=== PATIENT | male | born 1995 | race African-American/Black ===

== ENCOUNTER 2018-01-14 11:55 | Emergency (ER) | payer OTHER ==
[2018-01-14 12:36] LABS: BASOPHILS % (AUTO) 1.1 %; EOSINOPHILS # (AUTO) 0.2 10^3/uL (0.0-0.7); EOSINOPHILS % (AUTO) 5.2 %; LYMPHOCYTES # (AUTO) 1.9 10^3/uL (1.5-3.5); LYMPHOCYTES % (AUTO) 50.5 %; MEAN CORPUSCULAR HGB CONC 32.2 g/dL (32.0-36.0); MEAN CORPUSCULAR VOLUME 83.7 fL (80.0-94.0); MEAN PLATELET VOLUME 7.2 fL (7.4-11.4); MONOCYTES # (AUTO) 0.2 10^3/uL (0.0-1.0); MONOCYTES % (AUTO) 4.5 %; NEUTROPHILS # (AUTO) 1.5 10^3/uL (1.5-6.6); NEUTROPHILS % (AUTO) 38.7 %; PLT - PLATELET COUNT 240 10^3/uL (130-450); RED CELL DISTRIBUTION WIDTH 13.5 % (12.0-15.0); WHITE BLOOD COUNT 3.8 x10^3/uL (4.8-10.8)
[2018-01-14 12:50] LABS: ALBUMIN 4.2 g/dL (3.2-5.5); ALBUMIN/GLOBULIN RATIO 1.3 (1.0-2.2); BILIRUBIN,TOTAL 0.6 mg/dL (0.2-1.0); CALCIUM 9.3 mg/dL (8.5-10.3); CREATININE 1.3 mg/dL (0.6-1.2); TOTAL PROTEIN 7.4 g/dL (6.7-8.2)
[2018-01-14 12:58] LABS: BILIRUBIN,URINE NEGATIVE (NEGATIVE); GLUCOSE, URINE (UA) NEGATIVE (NEGATIVE); KETONES,URINE (UA) NEGATIVE (NEGATIVE); LEUKOCYTE ESTERASE, URINE NEGATIVE (NEGATIVE); NITRITE,URINE NEGATIVE (NEGATIVE); OCCULT BLOOD,URINE NEGATIVE (NEGATIVE); PROTEIN,URINE NEGATIVE (NEGATIVE); UROBILINOGEN,URINE 0.2 (NORMAL) E.U./dL (NORMAL)
[2018-01-14 13:02] LABS: CLARITY,URINE CLEAR (CLEAR)
--- NOTE | 2018-01-14 13:13 | ED Physician Documentation ---
PD HPI ABD PAIN - Stated complaint Stated Complaint: ABDOMINAL PAIN - Chief complaint Chief Complaint: Abd Pain - History obtained from History obtained from: Patient - History of Present Illness Timing - onset: How many hours ago (few), Today Timing - duration: Hours Timing - details: Abrupt onset, Still present Quality: Cramping, Aching, Pain Location: RUQ, RLQ Radiation: . No: Right flank Worsened by: Eating Associated symptoms: Nausea, Vomiting, Diarrhea. No: Fever, Hematochezia, Dysuria Recently seen: Clinic (today seen and referred to ER due to concern for appy.) Review of Systems Constitutional: reports: Myalgias. denies: Fever, Chills Nose: denies: Rhinorrhea / runny nose, Congestion Throat: denies: Sore throat Respiratory: denies: Cough GI: denies: Vomiting, Diarrhea PD PAST MEDICAL HISTORY - Past Medical History Past Medical History: No GI: None : None - Present Medications Home Medications: Ambulatory Orders Medication Instructions Recorded Confirmed Ibuprofen [Motrin] 600 mg PO TID #20 tab 01/14/18 Ondansetron Odt [Zofran] 4 mg TL Q6H PRN #15 tablet 01/14/18 - Allergies Allergies/Adverse Reactions: Allergies Allergy/AdvReac Type Severity Reaction Status Date / Time No Known Drug Allergies Allergy Verified 01/14/18 12:08 - Social History Does the pt smoke?: No Smoking Status: Never smoker - Family History Family history: reports: Non contributory PD ED PE NORMAL - Vitals Vital signs reviewed: Yes - General General: Alert and oriented X 3, No acute distress, Well developed/nourished - HEENT HEENT: PERRL, Pharynx benign - Neck Neck: Supple, no meningeal sign, No adenopathy - Cardiac Cardiac: RRR, No murmur - Respiratory Respiratory: Clear bilaterally - Back Back: No CVA TTP - Derm Derm: Normal color, Warm and dry - Neuro Neuro: Alert and oriented X 3, No motor deficit, Normal speech Results - Vitals Vitals: Oxygen O2 Source Room air - Labs Labs: Laboratory Tests 01/14/18 01/14/18 01/14/18 12:15 12:28 12:28 WBC 3.8 L RBC 4.80 Hgb 13.0 L Hct 40.2 L MCV 83.7 MCH 27.0 MCHC 32.2 RDW 13.5 Plt Count 240 MPV 7.2 L Neut # (Auto) 1.5 Lymph # (Auto) 1.9 [place] # (Auto) 0.2 Eos # (Auto) 0.2 Baso # (Auto) 0.0 Absolute Nucleated RBC 0.00 Nucleated RBC % 0.0 Sodium 139 Potassium 4.0 Chloride 105 Carbon Dioxide 30 Anion Gap 4.0 L BUN 15 Creatinine 1.3 H Estimated GFR (MDRD) 83 L Glucose 95 Calcium 9.3 Total Bilirubin 0.6 AST 20 ALT 26 Alkaline Phosphatase 46 Total Protein 7.4 Albumin 4.2 Globulin 3.2 Albumin/Globulin Ratio 1.3 Lipase 30 Urine Color YELLOW Urine Clarity CLEAR Urine pH 6.0 Ur Specific [place] >=1.030 H Urine Protein NEGATIVE Urine Glucose (UA) NEGATIVE Urine Ketones NEGATIVE Urine Occult Blood NEGATIVE Urine Nitrite NEGATIVE Urine Bilirubin NEGATIVE Urine Urobilinogen 0.2 (NORMAL) Ur Leukocyte Esterase NEGATIVE Ur Microscopic Review NOT INDICATED Urine Culture Comments NOT INDICATED PD MEDICAL DECISION MAKING - ED course Complexity details: reviewed results, re-evaluated patient, considered differential, d/w patient Departure - Departure Disposition: 01 Home, Self Care Clinical Impression: Abdominal pain Qualifiers: Abdominal location: right lower quadrant Qualified Code(s): R10.31 - Right lower quadrant pain Vomiting Qualifiers: Vomiting type: unspecified Vomiting Intractability: non-intractable Nausea presence: with nausea Qualified Code(s): R11.2 - Nausea with vomiting, unspecified Condition: Stable Record reviewed to determine appropriate education?: Yes Instructions: ED Abdominal Pain Unkn Cause, ED Diet Vomiting Diarrhea Follow-Up: [facility] [Provider Group] Prescriptions: Ibuprofen [Motrin] 600 mg PO TID #20 tab Ondansetron Odt [Zofran] 4 mg TL Q6H PRN #15 tablet PRN Reason: Nausea / Vomiting Comments: Frequent fluids to maintain hydration. Ondansetron if needed for nausea and vomiting. Ibuprofen or Tylenol if needed for pains. On testing today you have a normal appearance of the appendix, gallbladder, kidneys, urine and no focal identified cause of your symptoms. He most likely is from a viral irritation of the intestine and should improve over 1-2 days. Recheck if persistent symptoms or anything worsening. Forms: Activity restrictions Discharge Date/Time: 01/14/18 15:04
[2018-01-14] MEDS ORDERED: ONDANSETRON 4 MG/2 ML VIAL IVP STA (13:39)
[2018-01-14] MEDS ORDERED: SODIUM CHLORIDE 0.9% 1,000 ML IV ONE (13:39)
[2018-01-14] MEDS ORDERED: MORPHINE 10 MG/ML VIAL IVP STA (13:40)
[2018-01-14] MEDS ORDERED: IOPAMIDOL-300 100 ML VIAL ONE (13:57)
[2018-01-14] MEDS ORDERED: IOPAMIDOL-300 100 ML VIAL IVP ONE (14:08)
--- NOTE | 2018-01-14 14:25 | CT Preliminary Report ---
Exam: CT ABDOMEN/PELVIS W/ IMPRESSION: No acute abnormalities. [facility] SITE ID: [id number]
--- NOTE | 2018-01-14 14:25 | CT Report ---
EXAM: CT ABDOMEN AND PELVIS EXAM DATE: 01/14/2018 02:12 PM. CLINICAL HISTORY: Right mid abd pain progressive since yesterday. COMPARISONS: None. TECHNIQUE: Routine helical CT imaging was performed through the abdomen and pelvis. IV contrast: 100 cc Isovue 300. Enteric contrast: No. Reconstructions: Coronal and sagittal. In accordance with CT protocol optimization, one or more of the following dose reduction techniques w ere utilized for this exam: automated exposure control, adjustment of mA and/or KV based on patient s ize, or use of iterative reconstructive technique. FINDINGS: ABDOMEN: Lung Bases: Incompletely included lower lungs are grossly clear. Heart size is within normal limits. No basilar effusions. Liver: Unremarkable. Spleen: Unremarkable. Pancreas: Unremarkable. Gallbladder/Bile Ducts: Gallbladder is unremarkable. Biliary tree is normal caliber. Adrenal Glands: Unremarkable. Kidneys: No mass, calculi, or hydronephrosis. Peritoneum/Mesentery/Bowel: No free fluid, free air, or collection. No intestinal obstruction or inflammation. Retrocecal appendix is within normal limits. Lymph nodes: No mesenteric, periportal, or retroperitoneal lymphadenopathy. Retroperitoneum: Abdominal aorta is nonaneurysmal. Portal vein is patent. Hepatic veins are patent. PELVIS: The bladder is unremarkable for the degree of distention. Prostate is present. No pelvic lymp hadenopathy. Bones: No suspicious osseous lesions. IMPRESSION: No acute abnormalities. [facility] Referring Provider Line: [phone] SITE ID: [id number]
[2018-01-14] MEDS ORDERED: KETOROLAC 60 MG/2 ML VIAL IVP STA (14:39)
[2018-01-14 15:01] VITALS: BP 122/74
== END 2018-01-14 15:04 | disposition home or self-care (01) ==
LOC: ED 11:55
DX: R10.31 Right lower quadrant pain (principal); R11.2 Nausea with vomiting, unspecified
CPT/HCPCS: 36415; 74177; 80053; 81003; 83690; 85025; 96361; 96374; 96375; 99283; Q9967; 81001; 87086

== ENCOUNTER 2018-03-03 10:56 | Emergency (ER) | payer OTHER ==
--- NOTE | 2018-03-03 12:47 | ED Physician Documentation ---
PD HPI HEENT - Stated complaint Stated Complaint: DIZZY - Chief complaint Chief Complaint: Neuro - History obtained from History obtained from: Patient - History of Present Illness Timing - onset: How many days ago (2-3 days of some sore throat, congestion, mild cough and today noting feeling of vertigo with head movement.) Timing - duration: Days (2-3) Timing - details: Gradual onset, Still present, Waxing and waning Location: Right ear, Sinuses, Throat Associated symptoms: Congestion, Rhinorrhea, Other (sinus pressure feeling right face). No: Fever, Facial swelling, Headache Similar symptoms before: Has not had sx before Recently seen: Not recently seen Review of Systems Constitutional: reports: Myalgias. denies: Fever, Chills Nose: reports: Rhinorrhea / runny nose, Congestion, Sinus pressure / pain ( right maxillary) Throat: reports: Sore throat Cardiac: denies: Chest pain / pressure, Palpitations Respiratory: reports: Cough. denies: Dyspnea GI: denies: Nausea, Vomiting, Diarrhea Skin: denies: Rash, Lesions Neurologic: denies: Focal weakness, Numbness, Altered mental status, Headache PD PAST MEDICAL HISTORY - Past Medical History Past Medical History: No GI: None : None HEENT: None - Past Surgical History Past Surgical History: No - Present Medications Home Medications: Ambulatory Orders Medication Instructions Recorded Confirmed Amoxicillin 500 mg PO TID #20 capsule 03/03/18 Dexamethasone [Decadron] 4 mg PO DAILY #5 tablet 03/03/18 Meclizine [Antivert] 25 mg PO Q6H PRN #30 tablet 03/03/18 - Allergies Allergies/Adverse Reactions: Allergies Allergy/AdvReac Type Severity Reaction Status Date / Time No Known Drug Allergies Allergy Verified 03/03/18 11:05 - Social History Does the pt smoke?: No Smoking Status: Never smoker Does the pt drink ETOH?: No Does the pt have substance abuse?: No - Immunizations Immunizations are current?: Yes PD ED PE NORMAL - Vitals Vital signs reviewed: Yes - General General: Alert and oriented X 3, Well developed/nourished - HEENT HEENT: PERRL, EOMI (with some nystagmus to the right), Ears normal, Pharynx benign, Dentition benign - Neck Neck: Supple, no meningeal sign, No adenopathy - Cardiac Cardiac: RRR, No murmur - Respiratory Respiratory: Clear bilaterally - Abdomen Abdomen: Soft, Non tender - Derm Derm: Normal color, Warm and dry, No rash Results - Vitals Vitals: Oxygen O2 Source Room air - Labs Labs: Microbiology 03/03/18 11:00 Group A Strep Throat Culture - Final Throat MIXED OROPHARYNGEAL BHAVANA PRESENT. NO BETA STREP PRESENT IN CULTURE. Laboratory Tests 03/03/18 11:00 Group A Strep Rapid Negative PD MEDICAL DECISION MAKING - ED course Complexity details: considered differential (sounds like URI though focal right sinus symptoms and now vertigo symptoms. Presume sinus infection as cause. ), d/ w patient - Sepsis Event Vital Signs: Oxygen O2 Source Room air Departure - Departure Disposition: Home, Self Care Clinical Impression: Vertigo Labyrinthitis Qualifiers: Laterality: unspecified laterality Qualified Code(s): H83.09 - Labyrinthitis, unspecified ear Condition: Stable Record reviewed to determine appropriate education?: Yes Instructions: ED Labyrinthitis Prescriptions: Amoxicillin 500 mg PO TID #20 capsule Dexamethasone [Decadron] 4 mg PO DAILY #5 tablet Meclizine [Antivert] 25 mg PO Q6H PRN #30 tablet PRN Reason: Vertigo Comments: This sounds likely to be an infection or inflammation of the inner ear causing the dizziness. I would associate with the sore throat as well. We will treated as an inner ear/sinus infection. Amoxicillin three times daily for a week for presumed infection of inner ear. Decadron daily for inflammation of inner ear. Meclizine for symptoms of dizziness. Rest and less activity today due to symptoms. Recheck if not improved over the next 1-2 days. Forms: Activity restrictions Discharge Date/Time: 03/03/18 13:36
[2018-03-03] MEDS ORDERED: MECLIZINE 12.5 MG TABLET PO STA (13:10)
[2018-03-03] MEDS ORDERED: AMOXICILLIN 250 MG CAPSULE PO STA (13:10)
[2018-03-03] MEDS ORDERED: DEXAMETHASONE 10 MG/ML VIAL PO STA (13:10)
[2018-03-03 13:31] VITALS: BP 125/61
[2018-03-03] MEDS ORDERED: CHERRY SYRUP 10 ML UDC PO ONE (13:36)
== END 2018-03-03 13:36 | disposition home or self-care (01) ==
LOC: ED 10:56
DX: R42 Dizziness and giddiness (principal); H83.09 Labyrinthitis, unspecified ear
CPT/HCPCS: 87070; 87430; 99283; A9270

== ENCOUNTER 2018-07-07 13:44 | Emergency (ER) | payer OTHER ==
[2018-07-07] MEDS ORDERED: ONDANSETRON ODT 4 MG TABLET TL STA ×2 (16:03→16:04)
[2018-07-07] MEDS ORDERED: KETOROLAC 60 MG/2 ML VIAL IM STA (16:03)
--- NOTE | 2018-07-07 16:35 | ED Physician Documentation ---
History of Present Illness - Stated complaint Stated Complaint: MIGRAINE - Chief complaint Chief Complaint: General - Additonal information Additional information: 22 y/o AD [employer] male to ER for a WATSON X 2 weeks no trauma no fever no neck stiffness no sinus congestion ear pain or sore throat no CO in house, has alarms everyone else is fine no numbness weakness no hx migraines WATSON was initially between eyes now R confucianist seen at [facility] a week ago given imitrrex s relief no other meds taken Review of Systems Constitutional: denies: Fever Throat: denies: Sore throat Cardiac: denies: Chest pain / pressure GI: denies: Abdominal Pain, Nausea, Vomiting Neurologic: reports: Headache. denies: Focal weakness, Numbness Immunocompromised: denies: Immunocompromised PD PAST MEDICAL HISTORY - Past Medical History GI: None : None HEENT: None - Past Surgical History Past Surgical History: No - Present Medications Home Medications: Ambulatory Orders Medication Instructions Recorded Confirmed Amoxicillin 500 mg PO TID #20 capsule 03/03/18 Dexamethasone [Decadron] 4 mg PO DAILY #5 tablet 03/03/18 Meclizine [Antivert] 25 mg PO Q6H PRN #30 tablet 03/03/18 Butalb/Acetaminophen/Caffeine 1 each PO ONCE PRN #2 capsule 07/07/18 [Fioricet 50-300-40 mg Capsule] Ibuprofen [Motrin] 400 mg PO Q6H PRN #20 tablet 07/07/18 Ondansetron Odt [Zofran] 4 mg TL Q6H PRN #10 tablet 07/07/18 - Allergies Allergies/Adverse Reactions: Allergies Allergy/AdvReac Type Severity Reaction Status Date / Time No Known Drug Allergies Allergy Verified 07/07/18 14:00 - Social History Does the pt smoke?: No Smoking Status: Never smoker Does the pt drink ETOH?: No Does the pt have substance abuse?: No - Immunizations Immunizations are current?: Yes PD ED PE NORMAL - Vitals Vital signs reviewed: Yes - HEENT HEENT: PERRL, Other (globes soft, no TA TTP, pharynx and TMs benign, no papilledema) - Neck Neck: Supple, no meningeal sign - Cardiac Cardiac: RRR - Respiratory Respiratory: No respiratory distress - Derm Derm: Normal color - Neuro Neuro: Alert and oriented X 3, validation manager 2-12 intact, No motor deficit, No sensory deficit, Normal speech Eye Opening: Spontaneous Motor: Obeys Commands Verbal: Oriented GCS Score: 15 Results - Vitals Vitals: Vital Signs - 24 hr 07/07/18 07/07/18 13:55 16:51 Temperature 36.8 C Heart Rate 72 47 L Respiratory 16 15 Rate Blood Pressure 114/66 115/73 O2 Saturation 98 97 Oxygen O2 Source Room air PD MEDICAL DECISION MAKING - ED course ED course: non specific WATSON not sure its a migraine but hx and exam do not suggest ICH, intracranial HTN, glaucoma, temporal arteritis, meningitis, CO poisoning, sinusitis, etc will tx symptomatically felt much better after toradol and zofran ready for dc Departure - Departure Disposition: 01 Home, Self Care Clinical Impression: Headache Qualifiers: Headache type: unspecified Headache chronicity pattern: unspecified pattern Intractability: not intractable Qualified Code(s): R51 - Headache Condition: Good Instructions: ED Cephalgia Unspecified Prescriptions: Butalb/Acetaminophen/Caffeine [Fioricet 50-300-40 mg Capsule] 1 each PO ONCE PRN #2 capsule PRN Reason: Headache Ibuprofen [Motrin] 400 mg PO Q6H PRN #20 tablet PRN Reason: Pain Ondansetron Odt [Zofran] 4 mg TL Q6H PRN #10 tablet PRN Reason: Nausea / Vomiting Comments: I'm not sure that this headache is a migraine If you continue to have similar headaches in the future especially if you have visual changes prior to onset of headache, that may eventually be diagnosed. But more importantly, your history and exam do not suggest a head bleed, increased brain pressure, glaucoma, temporal arteritis, sinusitis, meningitis or CO poisoning So the goal today is symptom treatment If the head comes back i have prescribed some medications to help First try the zofran and motrin - if that does not work try the fioricet. Please follow up and [place] as needed and for duty status. Return if worse Forms: Activity restrictions
[2018-07-07 16:52] VITALS: BP 115/73
== END 2018-07-07 17:15 | disposition home or self-care (01) ==
LOC: ED 13:44
DX: R51 Headache (principal)
CPT/HCPCS: 96372; 99283; Q0162

== ENCOUNTER 2018-08-07 08:47 | Outpatient (CLI) | payer OTHER ==
--- NOTE | 2018-08-07 11:49 | MRI Report ---
Reason: HEADACHE Procedure Date: 08/07/2018 Accession Number: [id number] / [id number] Procedure: MRI - Brain W/WO CPT Code: FULL RESULT: EXAM: MRI BRAIN WITHOUT AND WITH CONTRAST EXAM DATE: 08/07/2018 10:02 AM. CLINICAL HISTORY: Headache. COMPARISON: None. TECHNIQUE: Multiplanar, multisequence T1-weighted and fluid-sensitive MR sequences of the brain were performed. Sequences optimized for routine evaluation. Other: None. IV Contrast: 7.5 cc Gadavist. FINDINGS: No abnormal diffusion signal or magnetic susceptibility is identified in the brain parenchyma. No cerebellar tonsillar ectopia is present. Ventricles and sulci are within normal limits. No abnormal T2 or flair hyperintensities are identified in the brain parenchyma. There is an expected flow void in the major intracranial vessels at the skull base. Expected enhancement is seen in the major dural venous sinuses. The right transverse sinus is hypoplastic. No enhancing mass is identified in the brain parenchyma. No enhancing mass is present in either Meckel's cave. The cavernous sinuses enhance and symmetric fashion. In the region of the posterior floor of mouth/right base of tongue on the right note is made of an oval 12 mm T2 hyperintensity which appears to be hypoenhancing on the postcontrast images. This extends near midline and is seen just superior to the hyoid on the sagittal images. IMPRESSION: 1. Normal contrast-enhanced MRI of the brain. 2. There is a cystic lesion on the right just above the level of the hyoid. High on the differential would be an off-midline thyroglossal duct cyst. Ultrasound would be of value to confirm this. [facility]
== END 2018-08-07 08:48 | disposition home or self-care (01) ==
LOC: DI 08:47
DX: G93.0 Cerebral cysts (principal)
CPT/HCPCS: 70553; A9585